=== PATIENT | female | born 1980 | race Caucasian/White ===

== ENCOUNTER 2016-10-24 12:11 | Emergency (ER) | payer BC ==
[2016-10-24 13:11] VITALS: BP 108/70
--- NOTE | 2016-10-24 13:42 | UC ---
Back Pain HPI - HPI Summary HPI Summary: Patient is an otherwise healthy 36yo F arriving to the with low back pain which started yesterday after trying to pull her 3yo daughter out of a cart. She is unable to stand straight, flex the back or twist. She states pain is 10/ 10 and located midline to the lower back and does not radiate. Denies urinary symptoms. Patient has history of low back pain intermittently. She has been diagnosed with DDD and 3 slipped disks. She denies previous back surgery and has not had a recent MRI. She recently had bypass last year and has had this same issue now twice this year. - History of Current Complaint Chief Complaint: UCBackPain Stated Complaint: LOWER BACK PAIN Time Seen by Provider: 10/24/16 12:46 Hx Obtained From: Patient Hx Last Menstrual Period: 10/08/16 ?: No Onset/Duration: Sudden Onset Timing: Constant Severity Initially: Severe Severity Currently: Severe Pain Intensity: 8 Pain Scale Used: 0-10 Numeric Back Pain: Is Discrete @ - low back Character: Throbbing, Spasmodic Aggravating: Movement, Lifting, Bending, Walking Alleviating: Rest, Position Associated Signs And Symptoms: Positive: Negative - Risk Factors AAA Risk Factors: Negative TAD Risk Factors: Negative Cauda Equina Risk Factors: Negative Epidural Abscess Risk Factors: Negative - Allergies/Home Medications Allergies/Adverse Reactions: Allergies Allergy/AdvReac Type Severity Reaction Status Date / Time Budesonide [From Symbicort] Allergy Intermediate Swelling Verified 10/24/16 13: 03 Doxycycline Allergy Intermediate Vomiting Verified 10/24/16 13:03 Formoterol [From Symbicort] Allergy Intermediate Swelling Verified 10/24/16 13: 03 Adhesive Tape Allergy Blisters Verified 10/24/16 13:03 Tramadol [From Ultram] Allergy Difficulty Verified 10/24/16 13:03 Breathing Ibuprofen AdvReac Unknown Verified 10/24/16 13:03 Reaction Details Home Medications: Home Medications Calcium Carbonate-Vitamin D [Calcium 500 + D] 1 tab PO DAILY 10/24/16 [History Confirmed 10/24/16] Gabapentin CAP(*) [Neurontin 100 mg CAP(*)] 100 mg PO BEDTIME 10/24/16 [History Confirmed 10/24/16] Tizanidine HCl [Zanaflex] 4 mg PO BEDTIME PRN 10/24/16 [History Confirmed ] PMH/Surg Hx/FS Hx/Imm Hx Previously Healthy: Yes Cardiovascular History Of: Denies: Cardiac Disorders Respiratory History Of: Reports: Asthma GI/ History Of: Reports: Gall Bladder Disease - naida - Surgical History Surgical History: Yes Surgery Procedure, Year, and Place: tonsils, cholecystectomy; lap band 2009 was removed 05/2015; gastric bypass by Dr. Wolff [facility]. hernia 01/2016. - Family History Known Family History: Positive: Hypertension, Diabetes - Mom is pre-diabetic - Social History Occupation: Employed Full-time Lives: With Family Alcohol Use: Rare Substance Use Type: None, Prescribed Smoking Status (MU): Former Smoker Have You Smoked in the Last Year: No When Did the Patient Quit Smoking/Using Tobacco: 2006 Review of Systems Constitutional: Negative Respiratory: Negative Cardiovascular: Negative Gastrointestinal: Negative Genitourinary: Negative Motor: Decreased ROM Neurovascular: Negative Musculoskeletal: Arthralgia - low back pain Neurological: Negative Psychological: Negative All Other Systems Reviewed And Are Negative: Yes Physical Exam Triage Information Reviewed: Yes Appearance: Well-Appearing, No Pain Distress, Well-Nourished Vital Signs: Initial Vital Signs Temp 97.4 F 10/24/16 13:06 Pulse 80 10/24/16 13:06 Resp 16 10/24/16 13:06 BP 108/70 10/24/16 13:06 Pulse Ox 100 10/24/16 13:06 Vital Signs Reviewed: Yes Eye Exam: Normal Eyes: Positive: Conjunctiva Clear Dental Exam: Normal Neck: Positive: Supple, Nontender, No Lymphadenopathy Respiratory Exam: Normal Respiratory: Positive: Chest non-tender, Lungs clear Cardiovascular Exam: Normal Cardiovascular: Positive: RRR Neurological Exam: Normal Neurological: Positive: Alert Psychological Exam: Normal Psychological: Positive: Normal Response To Family, Age Appropriate Behavior Skin Exam: Normal Back Pain Course/Dx - Course Course Of Treatment: Patient unable to extend at hips. Pain in low back at L4- L5 and does not radiate. No obvious deformity or bulge. Patient given lidocaine patch 5% and pain medications. She states the pain is limited to a few days usually and will get better. She states positioning helps and patient is encouraged to use a heating pad while not using the lidocaine patch. Denies bladder or bowel dysfunction. Xray not warranted as this has happened several times in the past with no obvious injuries shown on xray. - Differential Dx/Diagnosis Differential Diagnosis/HQI/PQRI: Compressive Cord Syndrome, Strain, Sprain Provider Diagnoses: low back strain Discharge - Discharge Plan Condition: Stable Disposition: HOME Prescriptions: HYDROcodone/ACETAMIN 5-325 MG* [[place] 5-325 TAB*] 1 tab PO Q4H PRN #18 tab MDD 6 PRN Reason: Pain Lidocaine PATCH 5%* [Lidoderm 5% Patch*] 1 patch TRANSDERM DAILY #7 patch Patient Education Materials: Low Back Strain (ED), Lower Back Exercises (ED) Referrals: Carol Figueroa MD [Primary Care Provider] - Additional Instructions: Dx. Muscle Strain Lidocaine patches 5% apply for 12 hours at a time. Hydrocodone every 4 hours as needed for pain Ibuprofen 600mg three times daily with meals for discomfort. Return to ED if symptoms worsen or fail to improve, notice worsening swelling, warmth or redness around the joint, develop fever, or pain is uncontrolled with OTC medications. Moist heat to the area for comfort. Warm showers or baths may improve symptoms. It is important to remain mobile as tolerated to prevent stiffening of the joints and delay healing. Follow up with your PCP. If symptoms remain for > 6 weeks, please seek special medical attention from an orthopedic physician.
== END 2016-10-24 13:39 | disposition home or self-care (01) ==
LOC: UCCORT 12:11
DX: S39.012A Strain of muscle, fascia and tendon of lower back, initial encounter (principal); X50.0XXA Overexertion from strenuous movement or load, initial encounter; Y93.89 Activity, other specified; Y92.9 Unspecified place or not applicable; J45.909 Unspecified asthma, uncomplicated; Z90.49 Acquired absence of other specified parts of digestive tract; Z98.84 Bariatric surgery status; Z88.6 Allergy status to analgesic agent; Z88.1 Allergy status to other antibiotic agents; Z88.5 Allergy status to narcotic agent; Z87.891 Personal history of nicotine dependence
CPT/HCPCS: 99212; G0463

== ENCOUNTER 2017-02-20 11:42 | Emergency (ER) | payer BC ==
[2017-02-20 13:45] VITALS: BP 103/61
--- NOTE | 2017-02-20 14:28 | UC ---
Throat Pain/Nasal Jarrett HPI - HPI Summary HPI Summary: Pt presents with c/o nasal congestion, sinus pressure, cough, sore thraot, wheezing, generalized malaise X 1 week. - History of Current Complaint Chief Complaint: UCRespiratory Stated Complaint: SINUS, COUGH Time Seen by Provider: 02/20/17 13:24 Hx Obtained From: Patient Hx Last Menstrual Period: 01/27/17 ?: No Onset/Duration: Gradual Onset, Lasting Weeks - 1week Severity: Moderate Cough: Productive - green Associated Signs & Symptoms: Positive: Wheezing, Sinus Discomfort Related History: Seasonal Allergies - Epiglottits Risk Factors Epiglottis Risk Factors: Negative - Allergies/Home Medications Allergies/Adverse Reactions: Allergies Allergy/AdvReac Type Severity Reaction Status Date / Time Budesonide [From Symbicort] Allergy Intermediate Swelling Verified 02/20/17 13: 45 Doxycycline Allergy Intermediate Vomiting Verified 02/20/17 13:45 Formoterol [From Symbicort] Allergy Intermediate Swelling Verified 02/20/17 13: 45 Adhesive Tape Allergy Blisters Verified 02/20/17 13:45 Tramadol [From Ultram] Allergy Difficulty Verified 02/20/17 13:45 Breathing Ibuprofen AdvReac Unknown Verified 02/20/17 13:45 Reaction Details Home Medications: Home Medications Pseudoephedrine HCL ER TAB* [Sudafed 12 Hour*] 120 mg PO BID 02/20/17 [History Confirmed 02/20/17] PMH/Surg Hx/FS Hx/Imm Hx Previously Healthy: Yes Respiratory History: Asthma Other Respiratory History: seasonal allergies - Surgical History Surgical History: Yes Surgery Procedure, Year, and Place: tonsils, cholecystectomy; lap band 2009 was removed 05/2015; gastric bypass by Dr. Wolff [facility]. hernia 01/2016. - Family History Known Family History: Positive: Hypertension, Diabetes - Mom is pre-diabetic - Social History Occupation: Employed Full-time Lives: With Family Alcohol Use: Rare Substance Use Type: None, Prescribed Smoking Status (MU): Former Smoker Have You Smoked in the Last Year: No When Did the Patient Quit Smoking/Using Tobacco: 2006 Review of Systems Constitutional: Chills, Fatigue Skin: Negative Eyes: Negative ENT: Sore Throat, Nasal Discharge, Sinus Congestion, Sinus Pain/Tenderness Respiratory: Cough Cardiovascular: Negative Gastrointestinal: Negative Genitourinary: Negative Motor: Negative Neurovascular: Negative Musculoskeletal: Negative Neurological: Negative Psychological: Negative All Other Systems Reviewed And Are Negative: Yes Physical Exam Triage Information Reviewed: Yes Appearance: Ill-Appearing Vital Signs: Initial Vital Signs Temp 98.5 F 02/20/17 13:42 Pulse 77 02/20/17 13:42 Resp 18 02/20/17 13:42 BP 103/61 02/20/17 13:42 Pulse Ox 100 02/20/17 13:42 Vital Signs Reviewed: Yes Eye Exam: Normal ENT Exam: Other ENT: Positive: Nasal congestion, Other: - sinus tenderness Dental Exam: Normal Neck exam: Normal Respiratory Exam: Other Respiratory: Positive: Wheezing - scattered throughout all Cardiovascular Exam: Normal Musculoskeletal Exam: Normal Neurological Exam: Normal Psychological Exam: Normal Skin Exam: Normal Throat Pain/Nasal Course/Dx - Differential Dx/Diagnosis Differential Diagnosis/HQI/PQRI: Sinusitis, Other - bronchitits Provider Diagnoses: sinusitis. wheezing/cough Discharge - Discharge Plan Condition: Stable Disposition: HOME Prescriptions: Amoxicillin PO (*) [Amoxicillin 875 MG (*)] 875 mg PO BID #14 tab Montelukast Sodium TAB* [Singulair TAB*] 10 mg PO BEDTIME #30 tab predniSONE TAB* [Deltasone TAB*] 20 mg PO DAILY #4 tab Patient Education Materials: Sinusitis (ED), Wheezing (ED) Referrals: Carol Figueroa MD [Primary Care Provider] - If Needed (Please follow up with your PCP as needed)
== END 2017-02-20 14:43 | disposition home or self-care (01) ==
LOC: UCCORT 11:42
DX: J01.90 Acute sinusitis, unspecified (principal); R06.2 Wheezing; R05 Cough; Z88.1 Allergy status to other antibiotic agents; Z88.8 Allergy status to other drugs, medicaments and biological substances
CPT/HCPCS: 99212; G0463

== ENCOUNTER 2017-10-25 10:20 | Emergency (ER) | payer BC ==
[2017-10-25 11:20] VITALS: BP 112/74
[2017-10-25] MEDS ORDERED: Ketorolac INJ* 30 MG/ML 1 ML VIAL IM ONE (11:45)
[2017-10-25] MEDS ORDERED: Metoclopramide TAB* 10 MG PO ONE (11:45)
[2017-10-25] MEDS ORDERED: SUMAtriptan SQ* 6 MG/0.5 ML VIAL SUBCUT ONE (11:46)
[2017-10-25] MEDS ORDERED: Ondansetron TAB* 4 MG PO ONE (11:46)
--- NOTE | 2017-10-25 11:53 | UC ---
Headache HPI - HPI Summary HPI Summary: She was watching TV when she got a headache which was about 7/10 in pain. It got worse until bedtime to a 10/10. THis morning it is a little better and is a 6/10. There is photophobia and phonophibia. No vomiting. SHe has hx of aura without headache. No focal neuro deficits. NO fever. SHe has neck pain and post headache as well. She is not on blood thinners. - History Of Current Complaint Chief Complaint: UCHeadache Stated Complaint: NGUYEN Time Seen by Provider: 10/25/17 11:35 Hx Obtained From: Patient Hx Last Menstrual Period: 10/18/17 Onset/Duration: Still Present Onset Of Symptoms: Still Present Initially Headache Was: Moderate Currently Pain Is: Current Pain Scale(0-10)= - 6/10 Pain Intensity: 7 Timing: Constant, Hours Character: Dull, Throbbing, Pressure Location of Headache: Temporal, Parietal Aggravating Factor(s): Bright Lights Allevating Factor(s): Position Change Associated Signs And Symptoms: Positive: Dizziness, Neck Pain, Neck Stiffness, Visual Changes. Negative: Nausea, Vomiting, Sinus Pressure, Fever, Decreased LOC - Allergies/Home Medications Allergies/Adverse Reactions: Allergies Allergy/AdvReac Type Severity Reaction Status Date / Time MS Budesonide Allergy Intermediate Swelling Verified 02/20/17 13:45 [From Symbicort] MS Doxycycline [Doxycycline] Allergy Intermediate Vomiting Verified 02/20/17 13: 45 MS Formoterol Allergy Intermediate Swelling Verified 02/20/17 13:45 [From Symbicort] Adhesive Tape Allergy Blisters Verified 02/20/17 13:45 MS Tramadol [From Ultram] Allergy Difficulty Verified 02/20/17 13:45 Breathing MS Ibuprofen [Ibuprofen] AdvReac Unknown Verified 02/20/17 13:45 Reaction Details PMH/Surg Hx/FS Hx/Imm Hx Previously Healthy: No - on fluoxetine. Prior headaches and aura. At times aura does not proceed hea - Surgical History Surgical History: Yes Surgery Procedure, Year, and Place: tonsils, cholecystectomy; lap band 2009 was removed 05/2015; gastric bypass by Dr. Wolff [facility]. hernia 01/2016. - Family History Known Family History: Positive: Hypertension, Diabetes - Mom is pre-diabetic - Social History Alcohol Use: Rare Substance Use Type: None Smoking Status (MU): Current Some Day Smoker Have You Smoked in the Last Year: No When Did the Patient Quit Smoking/Using Tobacco: 2006-had cigarette today Review of Systems Eyes: Blurred Vision, Photophobia Neurological: Headache All Other Systems Reviewed And Are Negative: Yes Physical Exam Triage Information Reviewed: Yes Appearance: Well-Appearing, Well-Nourished - Not in extremis but appears to have a headache. She is sitting up in chair and transfers to exam table easily. , Obese Vital Signs: Initial Vital Signs Temp 97.9 F 10/25/17 11:11 Pulse 95 10/25/17 11:11 Resp 20 10/25/17 11:11 BP 112/74 10/25/17 11:11 Pulse Ox 99 10/25/17 11:11 Vital Signs Reviewed: Yes Eyes: Positive: Conjunctiva Clear, Other: - Rashaun fundoscopic intact without papilledema.. Negative: Conjunctiva Inflamed ENT: Positive: Pharynx normal, Pharyngeal erythema, TMs normal, Uvula midline. Negative: Nasal congestion, Nasal drainage, Tonsillar swelling, Tonsillar exudate, Trismus, Sinus tenderness Neck: Positive: Supple, Nontender, No Lymphadenopathy. Negative: Nuchal Rigidity, Tenderness @, Enlarged Nodes @ - I lay her onthe examtable. It is easy to lift head off the bed, there is no muscular resistance. neck muscles are soft. Respiratory: Positive: Normal breath sounds, No respiratory distress, No accessory muscle use. Negative: Respiratory distress, Decreased breath sounds, Accessory muscle use, Crackles, Rhonchi, Stridor, Wheezing Cardiovascular: Positive: No Murmur, Pulses Normal, Brisk Capillary Refill Abdomen Description: Positive: No Organomegaly, Soft. Negative: Distended, Guarding Musculoskeletal: Positive: Strength Intact, ROM Intact, No Edema Neurological Exam: Normal Neurological: Positive: Alert, Muscle Tone Normal, Other: - Toe raise and heel raise intact. Rhomberg neg. Finger to nose and heel to brown well coordinated. CN III-XII intact.. Negative: Fatigued, Lethargic, Unresponsive, Abnormal Muscle Tone Psychological: Positive: Age Appropriate Behavior Skin: Negative: rashes Headache Course/Dx - Course Course Of Treatment: We have considered encephalitis, meningitis, sub arachnoid hemorrhage, brain bleed, CVA. There is no clinical evidence of this and she has no risk factors. Presentation is quite atypical for SAH. This is most c/w migraine. She feels much better after meds and has a headache of about 2/10 now. - Differential Dx/Diagnosis Differential Diagnosis/HQI/PQRI: CO2 Poisoning, CVA, TIA, Epidural Hematoma, Subdural Hematoma, Meningitis, Migraine, Sinus Headache, Subarachnoid Hemorrhage , Temporal Arteritis, Tension Headache, Viral Syndrome Provider Diagnoses: migraine Discharge - Sign-Out/Discharge Documenting (check all that apply): Discharge - Discharge Plan Condition: Good Disposition: HOME Patient Education Materials: Migraine Headache (ED) Referrals: Carol Figueroa MD [Primary Care Provider] - - Billing Disposition and Condition Condition: GOOD Disposition: HOME
[2017-10-25] MEDS ORDERED: Ondansetron ODT TAB* 4 MG PO ONE (12:10)
== END 2017-10-25 12:33 | disposition home or self-care (01) ==
LOC: UCCORT 10:20
DX: G43.909 Migraine, unspecified, not intractable, without status migrainosus (principal); Z88.6 Allergy status to analgesic agent; Z88.1 Allergy status to other antibiotic agents; Z88.8 Allergy status to other drugs, medicaments and biological substances; F17.210 Nicotine dependence, cigarettes, uncomplicated
CPT/HCPCS: 96372; 99212; A9270-GY; G0463; J1885; J3030

== ENCOUNTER 2018-07-11 11:03 | Emergency (ER) | payer BC ==
[2018-07-11 14:05] VITALS: BP 116/75
--- NOTE | 2018-07-11 14:19 | UC ---
Throat Pain/Nasal Jarrett HPI - HPI Summary HPI Summary: 38 y/o female with h/o asthma, no recent illnesses or ABX use presents with ~ 1 week h/o sinus congestion, headache/ sinus pain, cough, congestion in throat. No SOB currently, has rescue inhaler but low, does help with symtpoms. unknown fever, + chills/ body aches. - History of Current Complaint Stated Complaint: COUGH,CONGESTION Time Seen by Provider: 07/11/18 13:57 Hx Obtained From: Patient Hx Last Menstrual Period: ~06/10/18 ?: No Onset/Duration: Sudden Onset, Lasting Days Severity: Mild Pain Intensity: 0 Pain Scale Used: 0-10 Numeric Cough: Nonproductive Associated Signs & Symptoms: Positive: Sinus Discomfort, Nasal Discharge, Fever - chills Related History: Seasonal Allergies, Prior ENT Surgery - groiter - Allergies/Home Medications Allergies/Adverse Reactions: Allergies Allergy/AdvReac Type Severity Reaction Status Date / Time Adhesive Tape Allergy Blisters Verified 07/11/18 13:58 budesonide [From Symbicort] Allergy Swelling Verified 07/11/18 13:58 doxycycline Allergy Vomiting Verified 07/11/18 13:58 formoterol [From Symbicort] Allergy Swelling Verified 07/11/18 13:58 NSAIDS (Non-Steroidal Allergy See Comment Verified 07/11/18 13:58 Anti-Inflamma tramadol Allergy Difficulty Verified 07/11/18 13:58 Breathing Home Medications: Home Medications Gabapentin CAP(*) [Neurontin 300 CAP(*)] 300 mg PO BID 07/11/18 [History Confirmed 07/11/18] guaiFENesin [Guaifenesin] 400 mg PO Q4H PRN 07/11/18 [History Confirmed 07/11/18 ] PMH/Surg Hx/FS Hx/Imm Hx Previously Healthy: Yes - Surgical History Surgical History: Yes Surgery Procedure, Year, and Place: tonsils, cholecystectomy; lap band 2009 was removed 05/2015; gastric bypass by Dr. Wolff [facility]. hernia 01/2016. - Family History Known Family History: Positive: Hypertension, Diabetes - Mom is pre-diabetic - Social History Alcohol Use: Rare Substance Use Type: None Smoking Status (MU): Former Smoker Have You Smoked in the Last Year: No When Did the Patient Quit Smoking/Using Tobacco: ~2007 Review of Systems All Other Systems Reviewed And Are Negative: Yes Constitutional: Positive: Chills, Fatigue ENT: Positive: Sore Throat, Nasal Discharge, Sinus Congestion, Sinus Pain/ Tenderness Respiratory: Positive: Cough Gastrointestinal: Positive: Diarrhea - 2 weeks ago Neurological: Positive: Headache Is Patient Immunocompromised?: No Physical Exam Triage Information Reviewed: Yes Appearance: No Pain Distress, Well-Nourished, Ill-Appearing - mild Vital Signs: Initial Vital Signs Temp 98.9 F 07/11/18 13:53 Pulse 90 07/11/18 13:53 Resp 16 07/11/18 13:53 BP 116/75 07/11/18 13:53 Pulse Ox 99 07/11/18 13:53 Vital Signs Reviewed: Yes Eyes: Positive: Conjunctiva Clear ENT: Positive: Pharynx normal - minimal erythema, Nasal congestion - frontal, max b/l, TMs normal, Sinus tenderness - b/l, Uvula midline. Negative: Tonsillar swelling, Tonsillar exudate, Muffled voice, Hoarse voice, Dental tenderness Neck: Positive: Supple, Nontender, No Lymphadenopathy, Other: - enlarged thyroid nodule Respiratory: Positive: Chest non-tender, Lungs clear, Normal breath sounds, No respiratory distress, No accessory muscle use. Negative: Respiratory distress, Crackles, Rhonchi, Stridor, Wheezing Cardiovascular: Positive: RRR, No Murmur Psychological Exam: Normal Skin Exam: Normal Throat Pain/Nasal Course/Dx - Course Course Of Treatment: sinusitis, abx given, patient to undergo surgery in 12 days. inhaler, nebs given - Differential Dx/Diagnosis Differential Diagnosis/HQI/PQRI: Laryngitis, Pharyngitis, Sinusitis Provider Diagnosis: Sinusitis Discharge - Sign-Out/Discharge Documenting (check all that apply): Patient Departure All imaging exams completed and their final reports reviewed: No Studies - Discharge Plan Condition: Good Disposition: HOME Prescriptions: Albuterol 2.5MG/3ML (0.083%)* [Ventolin 2.5 MG/3 ML NEB.TAB*] 2.5 mg INH Q4H PRN #60 neb.tab PRN Reason: Shortness Of Breath Albuterol HFA INHALER* [Ventolin HFA Inhaler*] 1 - 2 puff INH Q4H PRN #1 mdi PRN Reason: shortness of breath Azithromyxin HANS (NF) [Z-Hans (Zithromax) 250 mg tabs #6] 2 tab PO .TODAY, THEN 1 DAILY #6 tab Patient Education Materials: Sinusitis (ED) Referrals: Carol Figueroa MD [Primary Care Provider] - Additional Instructions: - Increase fluid intake - Nebulizer as needed for shortness of breath, cough - REscue inhaler for cough - antibiotics for sinusitis as directed - Billing Disposition and Condition Condition: GOOD Disposition: Home - Attestation Statements Provider Attestation: I was available for consult. This patient was seen by the [facility]. The patient was not presented to, seen by, or examined by me. -Mignon
== END 2018-07-11 14:24 | disposition home or self-care (01) ==
LOC: UCCORT 11:03
DX: J32.9 Chronic sinusitis, unspecified (principal); Z88.1 Allergy status to other antibiotic agents; Z88.8 Allergy status to other drugs, medicaments and biological substances; Z88.6 Allergy status to analgesic agent; Z88.5 Allergy status to narcotic agent; Z87.891 Personal history of nicotine dependence
CPT/HCPCS: 99212; G0463

== ENCOUNTER 2019-01-08 15:56 | Emergency (ER) | payer BC ==
--- OUTSIDE RECORDS SUMMARY | 2019-01-08 17:17 | XMS REPORT | Continuity of Care Document ---
:1980 External Reference #:[id number] Author Name Debbie Fajardo Care Team Providers Name Role Phone Alaina Zeng FNP Care Team Information Walking Dragline Operator Unavailable Alaina Zeng FNP Primary Care Physician Unavailable Payers Date Identification Numbers Payment Provider Subscriber Policy Number: [id number] BS [employer] Augustus Garcia PayID: [id number] [address] [address] [place] [address] Family History Date Family Member(s) Observation Comments Father Heart Disease Father 63 Father spinal stenosis Mother Breast Cancer Mother 63 First Brother 25 First Brother No Current Problems Social History Type Date Description Comments Sex Unknown Occupation [employer] Tobacco Use Start: Unknown End: Used To Smoke Cigarettes But Unknown Quit. ETOH Use Rare Use Of Alcohol Recreational Drug Use Used Recreational Drugs In The Past Allergies, Adverse Reactions, Alerts Active Allergies Reaction Severity Comments Date Doxycycline VOMITING 10/24/2014 Symbicort (US) FACIAL SWELLING 10/24/2014 Medications Active Medications SIG Qnty Indications Ordering Provider Date Zyrtec Allergy 1 by mouth every Unknown 10mg day Tablets Prozac 1 by mouth every Unknown 20mg Capsules day hs Prilosec OTC 2 by mouth every Unknown 20mg Tablets day x 1 mo. Multivitamins 1 a day Unknown Capsules Calcium PO qid Unknown 500mg Tablets Vitamin B12 PO Qday Unknown Tablets ER Gabapentin PO bid Unknown 300mg Capsules Albuterol Sulfate nebulizer as Unknown needed Nebulizer Proventil HFA prn Unknown 108(90Base) mcg/Act Aerosol History Medications Percocet 1-2 by mouth four 20tabs Zaid Floresoj, M.D. 07/23/2018 - 5-325mg times a day as 07/30/2018 Tablets needed for pain Prevacid 1 tab by mouth Unknown - Capsules daily 05/28/2018 Patrice Unknown - Capsules 07/17/2018 Prednisone Unknown - Tablets 08/16/2018 Vital Signs Date Vital Result Comment 12/24/2018 2:08pm Weight 217.00 lb Height 67 inches 5'7" BMI (Body Mass Index) 34.0 kg/m2 BP Systolic 95 mmHg BP Diastolic 58 mmHg Heart Rate 88 /min O2 % BldC Oximetry 98 % Body Temperature 98.1 F Pain Level 0 09/21/2018 10:00am Weight 216.00 lb Height 67 inches 5'7" BMI (Body Mass Index) 33.8 kg/m2 BP Systolic 119 mmHg BP Diastolic 80 mmHg Heart Rate 88 /min O2 % BldC Oximetry 99 % Body Temperature 98.7 F Pain Level 0 08/31/2018 11:14am Weight 215.00 lb Height 67 inches 5'7" BMI (Body Mass Index) 33.7 kg/m2 BP Systolic 107 mmHg BP Diastolic 68 mmHg Heart Rate 74 /min O2 % BldC Oximetry 98 % Body Temperature 98.1 F Pain Level 0 08/16/2018 1:36pm Weight 212.00 lb Height 67 inches 5'7" BMI (Body Mass Index) 33.2 kg/m2 BP Systolic 107 mmHg BP Diastolic 74 mmHg Heart Rate 100 /min O2 % BldC Oximetry 97 % Body Temperature 96.9 F Pain Level 0 07/30/2018 10:15am Weight 206.00 lb Height 67 inches 5'7" BMI (Body Mass Index) 32.3 kg/m2 BP Systolic 119 mmHg BP Diastolic 83 mmHg Heart Rate 75 /min O2 % BldC Oximetry 98 % Body Temperature 97.0 F Pain Level 6 05/28/2018 1:21pm Weight 218.00 lb Height 67 inches 5'7" BMI (Body Mass Index) 34.1 kg/m2 BP Systolic 103 mmHg BP Diastolic 70 mmHg Heart Rate 79 /min O2 % BldC Oximetry 98 % Body Temperature 97.4 F Pain Level 0 10/24/2014 1:13pm Weight 290.00 lb Height 67 inches 5'7" BMI (Body Mass Index) 45.4 kg/m2 BP Systolic 116 mmHg BP Diastolic 72 mmHg Heart Rate 106 /min O2 % BldC Oximetry 98 % Body Temperature 98.5 F Results Test Date Facility Test Result H/L Range Note TSH+Free T4 12/24/2018 [facility] TSH (Thyroid <pending> [address] Stim [place]orm) [place] [address] [phone] Free T4 (Free Thyroxine) <pending> TSH+Free T4 09/21/2018 [facility] TSH (Thyroid 2.46 mcIU/mL N 0.34-5.[address] [place]) [place] [address] [phone] Free T4 (Free Thyroxine) 0.66 ng/dL N 0.61-1.12 2 Laboratory test 07/23/2018 [facility] Surgical SEE RESULT [address] [place] [address] [phone] Laboratory test 05/29/2018 [facility] Cytology SEE RESULT 4 , [address] Non[employer] [place] [address] [phone] Laboratory test 10/24/2014 [facility] Oral Mucosa See Note [address] [place] [address] [phone] [id number] 3 SEE RESULT BELOW Name: APARNA GARCIA : [address]: Greyson Flores MD Acct: [id number] Unit: [id number] AGE: 38 Location: [facility] Re07/23/18 SEX: F Status: REG REF SPEC: [id number] TAMARA: 07/23/18 [facility] DR: Greyson Flores MD REQ: [id number] RECD: 07/23/18 STATUS: SOUT _ ORDERED: LEVEL 5 COMMENTS: [id number] FINAL DIAGNOSIS Thyroid, left, lobectomy: -- Nodular follicular hyperplasia with predominant macrofollicular pattern with involutional changes and dystrophic calcifications. -- No evidence of neoplasia identified. CLINICAL HISTORY No history given GROSS DESCRIPTION The specimen is received in formalin labeled, Left Thyroid Gland, and consists of a 52 g, 9.5 x 5.7 by up to 3.2 cm aggregate of brown-ureña to huddleston irregular rubbery shaggy soft tissue fragments consistent with a markedly disrupted thyroid gland. The largest fragments measure 4.0 x 3.1 x 2.6 cm and 5.5 x 3.5 x 3.5 cm. The largest fragment is partially surfaced by a smooth to shaggy mottled huddleston-white intact capsule. The cut surface is variegated huddleston-white and colloidal. The remaining cut surface is huddleston-brown and colloidal. The intact capsule is inked, the specimen is serially sectioned and chemical sales representative sections are submitted in cassettes A through L to include largest fragment in cassettes A through H. Signed by and Reported on: James Tong MD 1526 END OF REPORT DEPARTMENT OF PATHOLOGY, [address] [place] [address] James Tong M.D. Director [facility] # [id number] 4 [id number] 5 SEE RESULT BELOW Name: APARNA GARCIA : [address]: Greyson Flores MD Acct: [id number] Unit: [id number] AGE: 38 Location: [facility] Re05/29/18 SEX: F Status: REG REF SPEC: [id number] TAMARA: 05/29/18-1800 [facility] DR: Greyson Flores MD REQ: [id number] RECD: 05/30/18-0 STATUS: SOUT _ ORDERED: FNA [facility] COMMENTS: [id number] FINAL DIAGNOSIS Thyroid, left, fine needle aspiration: Benign thyroid nodule, involutional type ([place] class II). The specimen demonstrates abundant watery proteinaceous fluid, an abundant amount of benign appearing follicular epithelium arranged in uniform sheets, medium sized follicles and only occasional small groups. Abundant pigmented and non-pigmented macrophages are seen in the background. No features of papillary carcinoma are seen. In this clinical setting the risk of malignancy is less than 3%. Clinical management of this thyroid nodule should be based on clinical and radiographic features as well as the above findings. THYROID LEFT - LEFT THYROID FINE NEEDLE ASP[IRATION CLINICAL HISTORY Left thyroid nodule. GROSS DESCRIPTION 1 Alcohol fixed slide(s) received from clinician, 5 Air dried slide(s) and Needle rinse in CytoLyt solution for thin layer non-channel machine operator test.(clear) Signed by and Reported on: James Tong MD 1204 END OF REPORT DEPARTMENT OF PATHOLOGY, [address] [place] [address] James Tong M.D. Director [facility] # [id number] 6 OPERATION/PROCEDURE Biopsy DIAGNOSIS: "LESION, INSIDE LEFT SIDE OF CHEEK, BIOPSY": SQUAMOUS MUCOSA WITH REACTIVE CHANGES. Bowen " GROSS Received in formalin labeled, "LESION, INSIDE LEFT SIDE OF CHEEK" is a 0.5 x 0.2 x 0.2 cm. huddleston, rubbery tissue. The deep edge is inked, the specimen is bisected and submitted in toto in one block. Bowen MICROSCOPIC Sections show a fragment of reactive parakeratotic and hyperplastic benign squamous epithelium. The rete ridges are hyperplastic and elongated. Some keratinocytes have vague cytoplasmic vacuoles that raise the concern of HPV infection. In situ hybridization studies were performed at [facility] and interpreted at [facility] with proper controls. No definitive evidence of high or low risk HPV infection is identified. PRE OPERATIVE DIAGNOSIS Left side of cheek lesion REVIEW CODE CODE: I Signed Electronically signed JOSEPH KIDD MD 10/29/14 1332 Procedures Date Code Description Status 07/23/2018 81999 Tot.Thyroid Lobect./Unil./Isthmus Completed 07/23/2018 47734 Tot.Thyroid Lobect./Unil./Isthmus Completed 07/23/2018 59913 Anesthesia, Neck Organ Surgery Not Otherwise Spec 1Yr Or Completed Older 05/29/2018 17688 Ultrasonic Guide Needle Biopsy Completed 05/29/2018 33242 Fna W/Image Completed 05/28/2018 52877 Ultrasound Head/Neck Completed 05/28/2018 70019 Fiberoptic Laryngoscopy,Diag. Completed 10/24/2014 68727 Exc Of Lesion Of Mucosa/Submucosa,Vestibule Of Completed Mouth:W/Simple Rep Encounters Type Date Location Provider Dx Diagnosis Office Visit 05/28/2018 Main Office Greyson Flores M.D. 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
[2019-01-08 17:21] VITALS: BP 120/72
--- NOTE | 2019-01-08 17:46 | UC ---
Throat Pain/Nasal Jarrett HPI - HPI Summary HPI Summary: 38 y/o female presents to the urgent care c/o sore throat, NGUYEN, sinus congestion , pressure, and yellowish nasal discharge for the past week. Pt reports symptoms worsen 2 days ago w/ Rt ear pain and dry cough. She noticed some blisters on the back of her throat today. Pt states pain is 4/10. She has taken Sudafed, Tylenol PO to alleviate symptoms. Pt denies fever, but had chills last night. Pt denies SOB, dizziness, chest pain,abdominal pain, N/V/d. - History of Current Complaint Chief Complaint: UCGeneralIllness Stated Complaint: ST,COUGH,CONGESTION, RT EAR COMPLAINT Time Seen by Provider: 01/08/19 17:35 Hx Obtained From: Patient Hx Last Menstrual Period: 12/28/18 Onset/Duration: Gradual Onset, Lasting Weeks - 1 week, Still Present, Worse Since - 2 days Severity: Moderate Pain Intensity: 4 - Rt ear pain Pain Scale Used: 0-10 Numeric Cough: Nonproductive Associated Signs & Symptoms: Positive: Sinus Discomfort, Nasal Discharge - yellowish. Negative: Hoarseness, Fever Related History: Seasonal Allergies - Epiglottits Risk Factors Epiglottis Risk Factors: Negative - Allergies/Home Medications Allergies/Adverse Reactions: Allergies Allergy/AdvReac Type Severity Reaction Status Date / Time Adhesive Tape Allergy Blisters Verified 01/08/19 17:22 budesonide [From Symbicort] Allergy Swelling Verified 01/08/19 17:22 doxycycline Allergy Vomiting Verified 01/08/19 17:22 formoterol [From Symbicort] Allergy Swelling Verified 01/08/19 17:22 NSAIDS (Non-Steroidal Allergy See Comment Verified 01/08/19 17:22 Anti-Inflamma tramadol Allergy Difficulty Verified 01/08/19 17:22 Breathing PMH/Surg Hx/FS Hx/Imm Hx Previously Healthy: Yes Respiratory History: Asthma - Surgical History Surgical History: Yes Surgery Procedure, Year, and Place: tonsils, cholecystectomy; lap band 2009 was removed 05/2015; gastric bypass by Dr. Wolff [facility]. hernia 01/2016. . thyroidectomy 07/2018 - Family History Known Family History: Positive: Hypertension, Diabetes - Mom is pre-diabetic - Social History Occupation: Employed Full-time Lives: With Family Alcohol Use: Rare Substance Use Type: None Smoking Status (MU): Former Smoker Have You Smoked in the Last Year: No When Did the Patient Quit Smoking/Using Tobacco: ~2007 Review of Systems All Other Systems Reviewed And Are Negative: Yes Constitutional: Positive: Negative Skin: Positive: Negative Eyes: Positive: Negative ENT: Positive: Sore Throat, Ear Ache - RT ear pain, Nasal Discharge - yellowish , Sinus Congestion, Sinus Pain/Tenderness, Other - PND Respiratory: Positive: Cough - dry Cardiovascular: Positive: Negative Gastrointestinal: Positive: Negative Genitourinary: Positive: Negative Motor: Positive: Negative Neurovascular: Positive: Negative Musculoskeletal: Positive: Negative Neurological: Positive: Negative Psychological: Positive: Negative Is Patient Immunocompromised?: No Physical Exam - Summary Physical Exam Summary: Vitals: reviewed General: Well developed, well-nourished female patient with NAD. Head and face: Normocephalic and atraumatic, Positive tenderness over the frontal and maxillary sinuses.. Eyes: PERRLA, EOMI x 2. Normal conjunctiva. No eye discharge. ENT: RT external ear canal w/ erythema dn yellowish draiange, RT TM WNL, LF exteranl ear canal clear, LF TM WNL, Nose: edematous and erythematous nasal mucosa with with yellowish discharge and erythematous mucosa. Pharynx with erythema, no exudate. Neck: Supple, no JVD, no carotid bruits and no lymphadenopathy. Lungs: clear, no rales, no rhonchi, no wheezes. CVS: RRR, S1 and S2 present no murmurs or gallops appreciated. Abdomen: soft nontender with positive bowel sounds. Extremities: no edema noted. Neuro: WNL. Skin: warm and dry Triage Information Reviewed: Yes Vital Signs: Initial Vital Signs Temp 98.3 F 01/08/19 17:18 Pulse 93 01/08/19 17:18 Resp 20 01/08/19 17:18 BP 120/72 01/08/19 17:18 Pulse Ox 100 01/08/19 17:18 Throat Pain/Nasal Course/Dx - Course Course Of Treatment: 38 y/o female presents to the urgent care c/o sore throat, NGUYEN, sinus congestion , pressure, and yellowish nasal discharge for the past week. Pt reports symptoms worsen 2 days ago w/ Rt ear pain and dry cough. She noticed some blisters on the back of her throat today. Pt states pain is 4/10. She has taken Sudafed, Tylenol PO to alleviate symptoms. Pt denies fever, but had chills last night. Pt denies SOB, dizziness, chest pain,abdominal pain, N/V/d. Hx obtained. Pt w/ acute bacterial sinusitis and Rt otitis externa on examination. Pt Rx Amoxicillin PO and ofloxacin otic drops to alleviate symptoms. Advised to use the flonase nasal spary and saline drops she has at home to clear sinuses. Discharge instructions explained to Pt. Advised to Return to the clinic or PCP if symptoms do not improve.Pt understood and agreed with plan of care. - Differential Dx/Diagnosis Differential Diagnosis/HQI/PQRI: Laryngitis, Mononucleosis, Otitis Media, Pharyngitis, Sinusitis, Tonsillitis, URI Provider Diagnosis: Right otitis externa, Sinusitis, acute Discharge - Sign-Out/Discharge Documenting (check all that apply): Patient Departure - D/c home All imaging exams completed and their final reports reviewed: No Studies - Discharge Plan Condition: Stable Disposition: HOME Prescriptions: Amoxicillin PO (*) [Amoxicillin 875 MG (*)] 875 mg PO BID #20 tab Ofloxacin 0.3% (Ear Drop)* [Floxin 0.3% OTIC.TAB (Ear Drop)] 5 drop RIGHT EAR BID #1 btl Patient Education Materials: Sinusitis (ED), Otitis Externa (ED) Referrals: Aneta Zeng, DRY ROASTER [Primary Care Provider] - 3 Days Additional Instructions: 1- Please increase fluid intake and rest. take full course of antibiotics if sinusitis worsens to avoid resistance. Take yogurts w/ probiotics or Culturelle to protect your GI system 2-Use Flonase nasal spray you have at home as directed to help drain fluid. Also buy saline drops to clear sinuses 3-Apply Ofloxacin otic drops as directed to alleviates RT otitis externa 4- Use Albuterol inhaler to alleviate cough or bronchospasm 4-Please f/u w/ your PCP in 3 days if symptoms do not improve for further management and treatment - Billing Disposition and Condition Condition: STABLE Disposition: Home
[2019-01-08] MEDS ORDERED: Albuterol 2.5 MG/3 ML NEB.SOL* (0.083%) INH ONE (17:55)
== END 2019-01-08 18:33 | disposition home or self-care (01) ==
LOC: UCCORT 15:56
DX: H60.91 Unspecified otitis externa, right ear (principal); J01.90 Acute sinusitis, unspecified; Z88.1 Allergy status to other antibiotic agents; Z87.891 Personal history of nicotine dependence
CPT/HCPCS: 87651; 99212; G0463

== ENCOUNTER 2019-02-17 09:01 | Emergency (ER) | payer BC ==
--- OUTSIDE RECORDS SUMMARY | 2019-02-17 09:09 | XMS REPORT | Continuity of Care Document ---
:1980 External Reference #:[id number] Author Name Paula Metcalf PA Address [phone] [place] [address] Care Team Providers Name Role Phone Alaina Zeng NP Care Team Information Supply Teacher Unavailable Alaina Zeng NP Primary Care Physician Unavailable Payers Date Identification Numbers Payment Provider Subscriber Policy Number: [id number] Ahmet Garcia Group Name: [facility] [address] [address] PayID: [id number] [place] [address] Problems Active Problems Provider Date Single major depressive episode Stephanie Murillo M.D. Onset: 05/04/2011 Intrinsic asthma Aimee Guajardo MD Onset: 12/15/2014 History of bypass of stomach Alaina Zeng FNP Onset: 07/27/2018 Neck pain Alaina Zeng FNP Onset: 12/05/2018 Resolved Problems Exacerbation of intermittent asthma Alaina Zeng FNP Onset: 2016 Resolved: 12/05/2018 Family History Date Family Member(s) Observation Comments Father Heart Disease Father Stroke Mother Breast Cancer Mother Hypertension Social History Type Date Description Comments Sex Unknown Lives With Lives With Daughter Occupation coach professional athletes ETOH Use Denies alcohol use Tobacco Use Start: Unknown End: Unknown Patient is a former smoker Tobacco Use Start: Unknown Quit 2006 Tobacco Use Start: Unknown works with smokers Smoking Status Reviewed: 01/21/19 works with smokers Allergies, Adverse Reactions, Alerts Active Allergies Reaction Severity Comments Date Ultram 05/04/2011 Doxycycline Vomiting 10/24/2014 Symbicort (US) Facial Swelling 10/24/2014 Medications Active Medications SIG Qnty Indications Ordering Provider Date Ofloxacin 2 drops both eyes 5ml H10.233 Aimee Guajardo, 01/21/2019 (Ophthalmic) twice a day for 7 MD 0.3% days Solution Albuterol Sulfate nebulized every 4 75ml J45.21 Karri, 02/24/2017 hours as needed Alaina (2.5mg/3ML) 0.083% VIRIDIANA Nebulizer Fluoxetine HCL Take 1 Capsule By 90caps F41.1 Aimee Guajardo, 11/13/2015 20mg Mouth Every Day MD Capsules Omeprazole 1 by mouth every 90caps Karri, 40mg day Robert Foley DR Bariatric Multiv 3 In Am,3 AT Night Murillo, Xiomy Brown Zanaflex 1 cap by mouth Unknown 4mg Capsules three times a day as needed neck spasm Gabapentin 1 by mouth twice a G25.81 Unknown 300mg day *from Sos for Capsules neck pain Fluticasone 1 spray each nares Unknown Propionate Nasal once daily. [place] 50mcg/Act Suspension History Medications Prednisone 1 by mouth 10tabs M54.31 Karri, 07/27/2018 - 20mg twice a day x 5 VIRIDIANA Foley 08/01/2018 Tablets days Oxycodone-Acetaminop 1-2 tablets 40tabs M54.31 Karri, 07/27/2018 - hen every 4-6 hours VIRIDIANA Foley 01/21/2019 5-325mg Tablets as needed for moderate to severe pain mdd#8 Nystatin apply tid for 7 60gm B37.2 Clary Scherer, 11/06/2017 - days PNP-VIRIDIANA HAYWARD, Ibclc 07/27/2018 [id number] Powder Prednisone take 5 tabs 36tabs J45.21 Carol Figueroa M.D. 07/05/2017 - 10mg daily x 3 days, 10/31/2017 Tablets 4 tabs x 2 days, 3 tabs x 2 days, 2 tabs x 2 days, 1 tab x 3 days, total 12 days Hydrocodone 1 tsp by mouth 493.12 Carol Figueroa M.D. 06/28/2017 - Polistirex/Chlorphen every 12 hrs as 06/28/2017 iramine Polistirex needed for persistent 10-8mg/5ML Suer cough; has taken before without allergic issues Reference #: [id number] Hydrocodone 1 teaspoon by 115ml J20.9 Carol Figueroa M.D. 06/28/2017 - Polistirex/Chlorphen mouth every 12 07/08/2017 iramine Polistirex hours as needed for persistent 10-8mg/5ML [place] cough; has taken before Reference #: [id number] Prednisone 1 by mouth 10tabs J45.21 Karri, 06/28/2017 - 20mg every day x 5 JenniferNATASHA stephensonP 07/03/2017 Tablets days *has used previously without reaction Cefdinir one by mouth 20caps J01.90 Karri, 06/28/2017 - 300mg q12 hours x 10 JenniferNATASHA stephensonP 07/08/2017 Capsules days Prednisone take 5 tabs 36tabs J45.21 Carol Figueroa M.D. 02/24/2017 - 10mg daily x 3 days, 06/28/2017 Tablets 4 tabs x 2 days, 3 tabs x 2 days, 2 tabs x 2 days, 1 tab x 3 days, total 12 days Tussionex 1 tsp by mouth 115ml 493.12 Carol Figueroa M.D. 02/24/2017 - Pennkinetic Extended every 12 hrs as 06/28/2017 Release needed for 10-8mg/5ML persistent Suer cough; has taken before without allergic issues Reference #: [id number] Fluconazole take 1 tablet 1tabs Carol Figueroa M.D. 09/05/2016 - 150mg by mouth 06/28/2017 Tablets Gabapentin take 1 capsule 90caps G25.81 Carol Figueroa M.D. 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 11/12/2014 Tablets days Prednisone 2 a day for 3 6tabs 493.92 Stephanie Murillo, 11/04/2014 - 20mg days then 1 M.D. 06/30/2015 Tablets aday for 2 days Flovent HFA 1 puff twice a Stephanie Corado, 11/19/2013 - day MD 12/15/2014 110mcg/Act Aerosol Albuterol Sulfate use with Stephanie Corado, 11/19/2013 - nebulizer as 12/15/2014 1.25mg/3ML Nebulizer directed every 4 hours Lansoprazole Take 1 Capsule 30caps Stephanie Murillo, 11/21/2012 - 30mg By Mouth Every MD 07/16/[address] Day Prednisone Kathie Jean-Baptiste - 20mg A., FURNITURE FINISHER APPRENTICE 06/28/2017 Tablets Montelukast Sodium Jerilyn Kathie - A., FURNITURE FINISHER APPRENTICE 07/05/2017 10mg Tablets Amoxicillin Jerilyn Kathie - 875mg A., FURNITURE FINISHER APPRENTICE 06/28/2017 Tablets Levocetirizine 1 by mouth 90tabs Stephanie Murillo, - Dihydrochloride every day M.D. 05/02/2016 5mg Tablets Prevacid 1 tab by mouth Unknown - 30mg daily 11/13/[address] Hydrocodone 15 ML PO Q4 180ml [place], - Bitartrate/Acetamino hours as needed Alaina [facility] 11/13/2015 phen for moderate to 7.5-325mg/15ML sever pain Solution Reference #: [id number] Calcet Petites 2 bid [place], [facility] 11/13/2015 [id number] Tablets Flintstones Complete 2 by mouth 100units [place], - every day [facility] 11/13/2015 60mg Chewtabs Vitamin B12 by mouth every 30tabs [place], - [facility]mcg [facility] 11/13/2015 Tablets Amoxicillin 1 by mouth 493.12 Unknown - 875mg twice a day 12/15/2014 Tablets Levocetirizine 1 by mouth Unknown - Dihydrochloride every day 07/16/2015 5mg Tablets Fluticasone 1 puff twice a Unknown - Propionate day 07/16/2015 50mcg/Act Suspension Astelin 2 puff twice a Unknown - 137mcg/[place] day 06/30/2015 Solution 8 Hour Pain Relief 1 po qd prn Unknown - 11/04/2014 650mg Tablets ER [facility] Allergy Relief 1 po qd 30caps Stephanie Murillo, - MD 12/15/2014 10mg Capsules Immunizations CPT Code Status Date Vaccine Lot # [id number] Given 05/02/2016 Influenza Virus Vaccine Split Virus Use For [id number] Individual 3Yr Older [id number] Given 04/14/2014 flu vaccination Vital Signs Date Vital Result Comment 01/21/2019 3:01pm BP Systolic 120 mmHg BP Diastolic 70 mmHg Body Temperature 98.1 F Heart Rate 93 /min Weight 225.38 lb O2 % BldC Oximetry 98 % 07/31/2018 9:20am BP Systolic Sitting Left Arm 112 mmHg BP Diastolic Sitting Left Arm 68 mmHg Body Temperature 97.9 F Heart Rate 78 /min Respiratory Rate 18 /min Height 67 inches 5'7" Weight 207.00 lb BMI (Body Mass Index) 32.4 kg/m2 BSA (Body Surface Area) 2.05 m2 [place] body weight in kilograms 61 kg 07/27/2018 10:30am BP Systolic Sitting Right Arm 118 mmHg BP Diastolic Sitting Right Arm 72 mmHg Body Temperature 98.1 F Heart Rate 96 /min Weight 218.56 lb O2 % BldC Oximetry 96 % 11/06/2017 2:18pm BP Systolic Sitting Left Arm 118 mmHg BP Diastolic Sitting Left Arm 70 mmHg Body Temperature 97.6 F Height 67 inches 5'7" Weight 229.50 lb BMI (Body Mass Index) 35.9 kg/m2 BSA (Body Surface Area) 2.14 m2 [place] body weight in kilograms 61 kg 07/05/2017 10:47am BP Systolic Sitting Left Arm 126 mmHg BP Diastolic Sitting Left Arm 70 mmHg Body Temperature 97.1 F Heart Rate 86 /min Respiratory Rate 12 /min Height 67 inches 5'7" Weight 214.25 lb BMI (Body Mass Index) 33.6 kg/m2 BSA (Body Surface Area) 2.08 m2 [place] body weight in kilograms 61 kg O2 % BldC Oximetry 94 % 06/28/2017 2:20pm BP Systolic Sitting Resting Right Arm 102 mmHg BP Diastolic Sitting Resting Right Arm 58 mmHg Body Temperature 100.7 F Heart Rate 88 /min Height 67 inches 5'7" Weight 214.00 lb BMI (Body Mass Index) 33.5 kg/m2 BSA (Body Surface Area) 2.08 m2 [place] body weight in kilograms 61 kg O2 % BldC Oximetry 98 % 02/24/2017 11:47am BP Systolic 142 mmHg BP Diastolic 82 mmHg Body Temperature 97.4 F Heart Rate 109 /min Height 67 inches 5'7" Weight 200.00 lb BMI (Body Mass Index) 31.3 kg/m2 BSA (Body Surface Area) 2.02 m2 [place] body weight in kilograms 61 kg O2 % BldC Oximetry 96 % 10/04/2016 3:14pm BP Systolic Sitting Left Arm 118 mmHg BP Diastolic Sitting Left Arm 68 mmHg Height 67 inches 5'7" Weight 195.44 lb BMI (Body Mass Index) 30.6 kg/m2 BSA (Body Surface Area) 2.00 m2 [place] body weight in kilograms 61 kg 09/05/2016 1:34pm BP Systolic 108 mmHg BP Diastolic 72 mmHg Body Temperature 98.6 F Heart Rate 72 /min Respiratory Rate 16 /min Height 67 inches 5'7" Weight 200.00 lb BMI (Body Mass Index) 31.3 kg/m2 BSA (Body Surface Area) 2.02 m2 Last Menstrual Period [id number] O2 % BldC Oximetry 99 % 05/11/2016 2:44pm BP Systolic Sitting Left Arm 118 mmHg BP Diastolic Sitting Left Arm 72 mmHg Height 67 inches 5'7" Weight 207.00 lb BMI (Body Mass Index) 32.4 kg/m2 BSA (Body Surface Area) 2.05 m2 [place] body weight in kilograms 61 kg Last Menstrual Period [id number] 05/02/2016 3:45pm BP Systolic Sitting Left Arm 116 mmHg BP Diastolic Sitting Left Arm 72 mmHg Body Temperature 99.1 F Heart Rate 78 /min Respiratory Rate 18 /min Height 67 inches 5'7" Weight 206.00 lb BMI (Body Mass Index) 32.3 kg/m2 BSA (Body Surface Area) 2.05 m2 [place] body weight in kilograms 61 kg Last Menstrual Period [id number] 11/13/2015 11:27am BP Systolic Sitting Left Arm 118 mmHg BP Diastolic Sitting Left Arm 66 mmHg Heart Rate 82 /min Respiratory Rate 18 /min Height 67 inches 5'7" Weight 237.00 lb BMI (Body Mass Index) 37.1 kg/m2 BSA (Body Surface Area) 2.17 m2 Last Menstrual Period [id number] 07/16/2015 11:54am BP Systolic 124 mmHg BP Diastolic 74 mmHg Body Temperature 97.9 F Height 67 inches 5'7" Weight 286.38 lb BMI (Body Mass Index) 44.8 kg/m2 BSA (Body Surface Area) 2.36 m2 06/30/2015 11:54am BP Systolic 124 mmHg BP Diastolic 72 mmHg Body Temperature 97.4 F Height 67 inches 5'7" Weight 311.50 lb BMI (Body Mass Index) 48.8 kg/m2 BSA (Body Surface Area) 2.44 m2 Last Menstrual Period [id number] 12/15/2014 1:15pm BP Systolic Sitting Left Arm 112 mmHg BP Diastolic Sitting Left Arm 72 mmHg Body Temperature 97.8 F Height 67 inches 5'7" Weight 303.00 lb BMI (Body Mass Index) 47.5 kg/m2 BSA (Body Surface Area) 2.41 m2 11/04/2014 2:55pm BP Systolic Sitting Left Arm 118 mmHg BP Diastolic Sitting Left Arm 64 mmHg Body Temperature 99.2 F Heart Rate 91 /min Respiratory Rate 21 /min Height 67 inches 5'7" Weight 302.00 lb BMI (Body Mass Index) 47.3 kg/m2 BSA (Body Surface Area) 2.41 m2 10/06/2014 4:15pm BP Systolic 122 mmHg LG Cuff BP Diastolic 66 mmHg LG Cuff Heart Rate 100 /min Respiratory Rate 19 /min Height 67 inches 5'7" Weight 299.00 lb 04/08/2014 2:18pm BP Systolic 118 mmHg LG Cuff BP Diastolic 78 mmHg LG Cuff Body Temperature 98.3 F Height 67 inches 5'7" Weight 303.00 lb 02/12/2014 3:38pm BP Systolic 108 mmHg BP Diastolic 74 mmHg Body Temperature 97.9 F Height 67 inches 5'7" Weight 305.00 lb 01/14/2014 11:57am BP Systolic 126 mmHg BP Diastolic 76 mmHg Body Temperature 97.4 F Height 67 inches 5'7" Weight 308.00 lb O2 % BldC Oximetry 98 % 11/19/2013 1:49pm BP Systolic 118 mmHg BP Diastolic 72 mmHg Body Temperature 98.9 F Height 67 inches 5'7" Weight 310.00 lb O2 % BldC Oximetry 98 % 05/03/2013 1:07pm BP Systolic 118 mmHg BP Diastolic 72 mmHg Body Temperature 98.7 F Height 67 inches 5'7" Weight 286.00 lb 04/09/2013 11:53am Height 67 inches 5'7" Weight 274.00 lb 03/26/2013 1:13pm BP Systolic 118 mmHg BP Diastolic 72 mmHg Body Temperature 98.3 F Height 67 inches 5'7" Weight 270.00 lb 11/21/2012 1:12pm BP Systolic 116 mmHg BP Diastolic 76 mmHg Heart Rate 96 /min Height 67 inches 5'7" Weight 219.00 lb 06/12/2012 3:46pm BP Systolic 124 mmHg BP Diastolic 72 mmHg Heart Rate 76 /min Respiratory Rate 18 /min Height 67 inches 5'7" Weight 232.00 lb 06/14/2011 1:44pm BP Systolic 138 mmHg BP Diastolic 88 mmHg Body Temperature 98.7 F Height 67 inches 5'7" Weight 225.00 lb 05/20/2011 2:29pm BP Systolic 122 mmHg BP Diastolic 72 mmHg Heart Rate 80 /min Height 67 inches 5'7" Weight 235.00 lb 05/04/2011 1:31pm BP Systolic 110 mmHg BP Diastolic 78 mmHg Heart Rate 84 /min Height 67 inches 5'7" Weight 236.00 lb 04/04/2011 2:01pm BP Systolic 144 mmHg BP Diastolic 90 mmHg Heart Rate 76 /min Respiratory Rate 18 /min Height 67 inches 5'7" Weight 238.00 lb Results Test Date Facility Test Result H/L Range Note Laboratory test [facility] Rapid Strep Negative Negative 1 finding 019 [phone] Molecular Glycohemoglobin [facility] Glycohemoglobin 5.0 % Normal 4.2-6.3 2, 3 A1c 018 [address] [facility] (A1c) [place], [place] [id number] [phone] eAG 97 mg/dL Iron-Tibc-%Sat 09/21/2017 [facility] Serum Iron 52 g/dL Normal 50-170 [address] [place], [place] [id number] [phone] Total Iron Binding Capacity 385 g/dL Normal 250-450 Transferrin %Saturation 14 % Normal 12-57 Laboratory test 09/21/2017 [facility] Vitamin B12 944 pg/mL Normal 193-986 finding [address] [place], [place] [id number] [phone] Ferritin 7 ng/mL Low 8-252 Comprehensive 09/21/2017 [facility] Glucose 96 mg/dL Normal 74-106 Metabolic Panel [address] [place], [place] [id number] [phone] BUN 14 mg/dL Normal 7-18 Creatinine 0.8 mg/dL Normal 0.6-1.3 Glom Filtration Rate, Estimate >60 mL/min >60 If >60 mL/min >60 4 BUN/Creat 17.5 ratio Sodium 139 mmol/L Normal 136-145 Potassium 3.8 mmol/L Normal 3.5-5.1 Chloride 108 mmol/L High 98-107 Carbon Dioxide 28 mmol/L Normal 21-32 Anion Gap 3 mEq/L Low 8-16 Calcium 9.0 mg/dL Normal 8.5-10.1 Total Protein 6.8 g/dL Normal 6.4-8.2 Albumin 3.6 g/dL Normal 3.4-5.0 Globulin 3.2 g/dL Normal 1.9-4.3 Alb/Glob 1.1 ratio Bilirubin,Total 0.2 mg/dL Normal 0.2-1.0 Sgot/Ast 21 U/L Normal 15-37 SGPT/Alt 24 U/L Normal 12-78 Alkaline Phosphatase 77 U/L Normal 45-117 LDL Cholesterol Profile 09/21/2017 [facility] Cholesterol 139 mg/dL <[address] [place] [address] [phone] Triglycerides 122 mg/dL <150 6 HDL Cholesterol 55 mg/dL >40 7 LDL-Cholesterol 60 mg/dL < 100 8 Laboratory test 09/21/2017 [facility] Thyroid 1.11 Normal 0.30-4.[address] Stim uIU/[place] [address] Hormone [phone] Free T4 0.86 ng/dL Normal 0.76-1.46 Vitamin D,25-Hydroxy 26.6 ng/mL Low 30.0-100.0 9 Vitamin B1 (Thiamine),WB 175.7 nmol/L 66.5-200.0 10 Laboratory test 06/17/2016 [facility] Thyroid 0.79 Normal 0.30-4.20 [address] Stim uIU/[place] [address] Hormone [phone] Free T4 0.91 ng/dL Normal 0.76-1.46 12 Vitamin D,25-Hydroxy 26.9 ng/mL Low 30.0-100.0 13 Vitamin B1 (Thiamine),WB 134.5 nmol/L Normal 66.5-200.0 14 LDL Cholesterol 06/17/2016 [facility] Cholesterol 134 mg/dL Normal <200 15 Profile [address] [place] [address] [phone] Triglycerides 129 mg/dL Normal <150 16 HDL Cholesterol 56 mg/dL Normal >40 17 LDL-Cholesterol 52 mg/dL Normal < 100 18 Comprehensive Metabolic 06/17/2016 [facility] Glucose 127 mg/dL High 74-106 Panel [address] [place] [address] [phone] BUN 7 mg/dL Normal 7-18 Creatinine 0.9 mg/dL Normal 0.6-1.3 Glom Filtration Rate, Estimate >60 mL/min Normal >60 If >60 mL/min Normal >60 19 BUN/Creat 7.7 ratio Normal Sodium 143 mmol/L Normal 136-145 Potassium 3.4 mmol/L Low 3.5-5.1 Chloride 109 mmol/L High 98-107 Carbon Dioxide 27 mmol/L Normal 21-32 Anion Gap 7 mEq/L Low 8-16 Calcium 8.6 mg/dL Normal 8.5-10.1 Total Protein 7.2 g/dL Normal 6.4-8.2 Albumin 3.8 g/dL Normal 3.4-5.0 Globulin 3.4 g/dL Normal 1.9-4.3 Alb/Glob 1.1 ratio Normal Bilirubin,Total 0.2 mg/dL Normal 0.2-1.0 Sgot/Ast 16 U/L Normal 15-37 SGPT/Alt 22 U/L Normal 12-78 Alkaline Phosphatase 76 U/L Normal 45-117 Laboratory test 06/17/2016 [facility] Total Iron 401 g/dL Normal 250-450 [address] [place] [address] Capacity [phone] Vitamin B12 795 pg/mL Normal 193-986 21 Ferritin 10 ng/mL Normal 8-252 22 Glycohemoglobin 06/17/2016 [facility] Glycohemoglobin 5.4 % Normal 4.2-6.3 23 A1c [address] [facility] (A1c) [place] [address] [phone] eAG 108 mg/dL Normal CBC 06/17/2016 [facility] White Blood Count 5.8 K/uL Normal 3.1-10.[address] [place] [address] [phone] Red Blood Count 4.81 M/uL Normal 3.90-5.40 Hemoglobin 14.0 gm/dL Normal 11.6-15.8 Hematocrit 42.2 % Normal 36.0-46.1 Mean Cell Volume 87.7 fl Normal 80.9-99.0 Mean Corpuscular HGB 29.1 pg Normal 25.9-32.7 Mean Corpuscular HGB Conc 33.2 g/dL Normal 30.8-34.3 Platelet Count 208 K/uL Normal 155-360 Red Cell Distri Width %CV 13.9 % Normal 11.7-14.4 Mean Platelet Volume 12.0 fL Normal 8.9-12.4 Laboratory test 12/14/2015 N2N/CCD Import Alanine Aminotransferase 25 12 -78 finding (Alt/SGPT) Albumin 3.4 3.4-5.0 Albumin/Globulin Ratio 1.0 Alkaline Phosphatase 84 45-117 Anion Gap 5 Low 8-16 Aspartate Amino Transf (Ast/Sgot) 17 15-37 BUN/Creatinine Ratio 16.2 Basophils # (Auto) 0.02 0.0-0.1 Basophils (%) (Auto) 0.3 0.0-1.1 Blood Urea Nitrogen 13 7-18 Calcium Level 8.7 8.5-10.1 Carbon Dioxide Level 30 21-32 Chloride Level 106 98-107 Cholesterol Level 129 <200 Creatinine 0.8 0.6-1.3 Eosinophils # (Auto) 0.10 0.0-0.5 Eosinophils (%) (Auto) 1.4 0.0-6.6 Estimated Average Glucose (eAG) 114 Ferritin 13 8-252 Folate 12.3 3.1-17.5 Globulin 3.3 1.9-4.3 Glucose Screen 102 74-106 HDL Cholesterol 35 Low >40 Hematocrit 38.7 36.0-46.1 Hemoglobin 12.4 11.6-15.8 Hemoglobin A1c 5.6 4.2-6.3 Iron Level 60 50-170 LDL Cholesterol, Calculated 61 < 100 Lymphocytes # (Auto) 1.60 Low 1.8-7.0 Lymphocytes (%) (Auto) 21.6 17.0-46.1 Mean Corpuscular Hemoglobin 27.7 25.9-32.7 Mean Corpuscular Hemoglobin Concent 32.0 30.8-34.3 Mean Corpuscular Volume 86.6 80.9-99.0 Mean Platelet Volume 12.6 High 8.9-12.4 Monocytes # (Auto) 0.41 0.3-0.9 Monocytes (%) (Auto) 5.5 4.3-13.2 Neutrophils # (Auto) 5.27 1.8-7.0 Neutrophils (%) (Auto) 71.2 40.4-72.8 Platelet Count 201 155-360 Potassium Level 3.6 3.5-5.1 Prealbumin 15.8 Low 20.0-40.0 RDW Coefficient of Variation 15.9 High 11.7-14.4 Red Blood Count 4.47 3.90-5.40 Red Cell Distribution Width 49.1 High 3-47 Sodium Level 141 136-145 Total Bilirubin 0.3 0.2-1.0 Total Iron Binding Capacity 335 250-450 Total Protein 6.7 6.4-8.2 Transferrin % Saturation 18 12-57 Triglycerides Level 167 High <150 Vitamin B12 Level 614 193-986 White Blood Count 7.4 3.1-10.7 Whole Blood Vitamin B1 Level 124.7 66.5-200.0 Laboratory test 12/14/2015 N2N/CCD Import Vitamin D 32.5 30.0-100.0 finding 25-Hydroxy Urinalysis 11/26/2015 [facility] Urine Color Yellow Normal 24 Profile [phone] Urine Appearance Clear Normal Urine Specific [place] 1.023 Normal 1.010-1.030 Urine pH 6.0 Normal 5-9 Urine Urobilinogen Negative Normal Negative Urine Ketones Negative Normal Negative Urine Protein Negative Normal Negative Urine Leukocytes Negative Normal Negative Urine Blood 1+ Abnormal Negative Urine Nitrite Negative Normal Negative Urine Bilirubin Negative Normal Negative Urine Glucose Negative Normal Negative Urine White Blood Cell Absent Normal Absent Urine Red Blood Cell 3+(>10/hpf) Abnormal Absent Urine Bacteria 1+ Abnormal Absent Urine Squamous Epithelial Cell Present Abnormal Absent Urine Calcium Oxalate Cryst Present Abnormal Absent Laboratory test 11/26/2015 [facility] Urine Culture SEE RESULT 25 finding [phone] BELOW Laboratory test 07/14/2015 [facility] Wound/Misc SEE RESULT 26, 27 finding [phone] Culture-Gram BELOW Stain Laboratory test 02/12/2014 N2N/CCD Import Urine Culture See Note 28 finding Laboratory test 12/02/2012 N2N/CCD Import Bas% 0.5 % 0.0-1 finding .1 Baso # 0.04 K/uL 0.0-0.1 Eo% 1.6 % 0.0-6.6 Eos # 0.12 K/uL 0.0-0.5 HCG, Quant 40538.0 mIU/mL 29 Hematocrit 36.9 % 36.0-46.1 Hemoglobin 13.0 gm/dL 11.6-15.8 Lymph # 2.69 K/uL 0.8-3.4 Lymph % 35.9 % 17.0-46.1 Mean Cell Volume 84.6 fl 80.9-99.0 Mean Corpuscular HGB 29.8 pg 25.9-32.7 Mean Corpuscular HGB Conc 35.2 g/dL High 30.8-34.3 Mean Platelet Volume 11.5 fL 8.9-12.4 [place] # 0.66 K/uL 0.3-0.9 [place] % 8.8 % 4.3-13.2 Neut# 3.99 K/uL 1.0-7.0 Neut% 53.2 % 40.4-72.8 Platelet Count 170 K/uL 155-360 Red Blood Count 4.36 M/uL 3.90-5.40 Red Cell Distri Width %CV 12.3 % 11.7-14.4 Red Cell Distri Width SD 36.9 fl 3-47 Urine HCG (Qualitative) Positive High Negative White Blood Count 7.5 K/uL 3.1-10.7 Basic Metabolic Panel 12/02/2012 N2N/CCD Import Anion Gap 14 mEq/L 8-16 BUN 4 mg/dL Low 5-23 BUN/Creat 4.4 ratio Calcium 8.9 mg/dL 8.5-10.1 Carbon Dioxide 25 mEq/L 18-29 Chloride 104 mmol/L 98-107 Creatinine 0.9 mg/dL 0.5-1.4 Glom Filtration Rate, Estimate >60 mL/min >60 Glucose 86 mg/dL 76-115 If >60 mL/min >60 30 Potassium 3.3 mmol/L Low 3.5-5.1 Sodium 140 mmol/L 136-145 Urine Screen 12/02/2012 N2N/CCD Import Urine Bilirubin - Negative Negative Dipstick Urine Blood Trace Negative Urine Clarity Clear Clear Urine Color Yellow Yellow Urine Glucose - Dipstick Negative mg/dL Negative Urine Ketone Negative mg/dL Negative Urine Leuk Esterase Negative Negative Urine Nitrite - Dipstick Negative Negative Urine PH 6.0 Low 6.5-7.5 Urine Protein - Dipstick Negative mg/dL Negative Urine Specific [place] 1.010 1.010-1.030 Urine Urobilinogen - Dipstick 0.2 E.U./dL 0.2-1.0 Laboratory test finding 06/12/2012 N2N/CCD Import T4 7.6 ug/mL 5.0-12.0 TSH (Thyroid Stimulating Horm) 0.92 MIU/ML 0.34-5.60 Laboratory test 04/04/2011 N2N/CCD Import TSH 0.76 MIU/ML 0.34-5.60 finding Laboratory test 04/04/2011 N2N/CCD Import Cytology Pap See Note 31 finding 1 Occupational Work Experience Teacher: [id number] K91.2 3 Elevated levels of HbA1c suggest the need for more aggressive treatment of glycemia. The [place] [employer] recommends that a primary goal of therapy should be a HbA1c of <7% and that physicians should re-evaluate the treatment regimen in patients with HbA1c values consistently >8%. 4 Note: Persistent reduction for 3 months or more in an eGFR <60 mL/min/1.73 m2 defines CKD. Patients with eGFR values >/=60 mL/min/1.73 m2 may also have CKD if evidence of persistent proteinuria is present. The original MDRD equation for estimated GFR is not valid for patients less than 18 years of age. Additional information may be found at www.kdoqi.org. 5 Reference Guidelines*: Desirable: ........... < 200 mg/dL Borderline High: ..... 200-239 mg/dL High: ................ >=240 mg/dL * The National Cholesterol Education Program (NCEP) 6 Reference Guidelines*: Normal: ............. < 150 mg/dL Borderline High: .... 150-199 mg/dL High: ............... 200-499 mg/dL Very High: .......... > 500 mg/dL * Source: National Cholesterol Education Program (NCEP) 7 Reference Guidelines*: Low HDL: ..... < 40 mg/dL Normal: ..... 40-60 mg/dL Desirable: ... > 60 mg/dL *The National Cholesterol Education Program(NCEP) 8 Reference Guidelines*: Optimal:........... <100 mg/dL Near Optimal....... 100-129 mg/dL Borderline High.... 130-159 mg/dL High............... 160-189 mg/dL Very High.......... >=190 mg/dL * Source: National Cholesterol Education Program (NCEP) 9 Vitamin D deficiency has been defined by the [place] [employer] and an Endocrine Society practice guideline as a level of serum 25-OH vitamin D less than 20 ng/mL (1,2). The Endocrine Society went on to further define vitamin D insufficiency as a level between 21 and 29 ng/mL (2). 1. IOM ([place] [employer]). 2010. Dietary reference intakes for calcium and D. [place]: The National Academies Press. 2. Marifer Soto, Bharati NGUYEN, et al. Evaluation, treatment, and prevention of vitamin D deficiency: an Endocrine Society clinical practice guideline. JCEM. 2010; 96(7):1911-30. Performed at: - [facility] [id number] [employer] Farmer: Mabel Pierre MD, Phone: [phone] 10 This test was developed and its performance characteristics determined by [employer]. It has not been cleared or approved by the Food and Drug Administration. Performed at: [facility] [employer] [id number] [employer] Farmer: Andrés Heath MD, Phone: [phone] SHERRY CROOKS [phone] SHERRY CROOKS [phone] 13 Vitamin D deficiency has been defined by the [place] [employer] and an Endocrine Society practice guideline as a level of serum 25-OH vitamin D less than 20 ng/mL (1,2). The Endocrine Society went on to further define vitamin D insufficiency as a level between 21 and 29 ng/mL (2). 1. IOM ([place] [employer]). 2010. Dietary reference intakes for calcium and D. [place]: The National Academies Press. 2. Marifer Soto, Bharati NGUYEN, et al. Evaluation, treatment, and prevention of vitamin D deficiency: an Endocrine Society clinical practice guideline. JCEM. 2010; 96(7):1911-30. Performed at: - [facility] [id number] [employer] Farmer: Mabel Pierre MD, Phone: [phone] 14 Performed at: - [facility] [id number] [employer] Farmer: Andrés Heath MD, Phone: [phone] 15 Reference Guidelines*: Desirable: ........... < 200 mg/dL Borderline High: ..... 200-239 mg/dL High: ................ >=240 mg/dL * The National Cholesterol Education Program (NCEP) 16 Reference Guidelines*: Normal: ............. < 150 mg/dL Borderline High: .... 150-199 mg/dL High: ............... 200-499 mg/dL Very High: .......... > 500 mg/dL * Source: National Cholesterol Education Program (NCEP) 17 Reference Guidelines*: Low HDL: ..... < 40 mg/dL Normal: ..... 40-60 mg/dL Desirable: ... > 60 mg/dL *The National Cholesterol Education Program(NCEP) 18 Reference Guidelines*: Optimal:........... <100 mg/dL Near Optimal....... 100-129 mg/dL Borderline High.... 130-159 mg/dL High............... 160-189 mg/dL Very High.......... >=190 mg/dL * Source: National Cholesterol Education Program (NCEP) 19 Note: Persistent reduction for 3 months or more in an eGFR <60 mL/min/1.73 m2 defines CKD. Patients with eGFR values >/=60 mL/min/1.73 m2 may also have CKD if evidence of persistent proteinuria is present. The original MDRD equation for estimated GFR is not valid for patients less than 18 years of age. Additional information may be found at www.kdoqi.org. [address] SHERRY CROOKS [phone] SHERRY CROOKS [phone] SHERRY CROOKS [phone] 23 Elevated levels of HbA1c suggest the need for more aggressive treatment of glycemia. The [place] Diabetes Association recommends that a primary goal of therapy should be a HbA1c of <7% and that physicians should re-evaluate the treatment regimen in patients with HbA1c values consistently >8%. 24 [id number] 25 SEE RESULT BELOW Name: APARNA GARCIA : [address]: Cedric Barrera MD Acct: [id number] Unit: [id number] AGE: 35 Location: [facility] Re11/26/15 SEX: F Status: DEP ER SPEC: [id number] TAMARA: 11/26/15-1245 [facility] DR: Cynthia Narvaez [employer]IT[employer] FINISHER APPRENTICE REQ: [id number] RECD: 11/26/15432 STATUS: MANDIE CAMARA DR: Stephanie Barrera MD _ SOURCE: URINE SPDESC: ORDERED: Urine Culture COMMENTS: [id number] Procedure Result Reported Site Urine Culture Final 11/27/15- 1633 ML No Growth (<1,000 CFU/mL) * ML - MAIN LAB ([facility]) . END OF REPORT * ML=Testing performed at Main Lab DEPARTMENT OF PATHOLOGY, [address] [place] [address] James Tong M.D. Director [facility] # [id number] 26 Comment: left 27 SEE RESULT BELOW Name: APARNA GARCIA : [address]: Julisa Joya MD Acct: [id number] Unit: [id number] AGE: 35 Location: [facility] Re07/14/15 SEX: F Status: DEP ER SPEC: [id number] TAMARA: 07/14/15-1309 [facility] [address]: Julisa Joya MD REQ: [id number] RECD: 07/14/15 STATUS: MANDIE CAMARA DR: Stephanie Murillo MD _ SOURCE: ABDOMEN SPDESC: ORDERED: Culture Stain COMMENTS: Comment: left Procedure Result Reported Site Wound/Misc Gram Stain Final 07/14/15- 2007 ML 2+ Epithelial Cells 2+ Neutrophils 1+ Gram Negative Bacilli Wound/Misc Culture Final 07/16/15- 1357 ML Organism 1 PSEUDOMONAS AERUGINOSA Quantity 3+ Organism 2 NORMAL MAYA Quantity 1+ 1. PSEUDOMONAS AERUGINOSA M.I.C. RX --------- ------ Ampicillin >=32 R Cefazolin >=64 R Cefepime <=1 S Ceftriaxone R Ciprofloxacin <=0.25 S Gentamicin <=1 S Levofloxacin 1 S Meropenem 0.5 S Nitrofurantoin >=512 R Tetracycline >=16 R Pipercillin/Tazobactam 8 S Trimethoprim/Sulfamethoxazole 80 R Amoxicillin/Clavulanic Acid >=32 R CONTINUED ON NEXT PAGE * ML=Testing performed at Main Lab DEPARTMENT OF PATHOLOGY, [address] [place] [id number] James Tong M.D. Director [facility] # [id number] Patient: APARNA GARCIA [id number] (Continued) Specimen: [id number] Collected: 07/14/15 Received: 07/14/15 (Continued) Procedure Result Reported Site Wound/Misc Culture Final (continued) Contact the Microbiology Department for any additional antibiotic reporting. * ML - MAIN LAB ([facility]) . END OF REPORT * ML=Testing performed at Main Lab DEPARTMENT OF PATHOLOGY, [address] [place] [address] James Tong M.D. Director [facility] # [id number] 28 COLONY COUNT ! >100,000 CFU/ml Organism 1 ! STAPHYLOCOCCUS SAPROPHYTICUS QUANTITY ! MANY RECOMMENDED THERAPY: ! ORAL CEPHALOSPORINS OR AMOXICILLIN/CLAV STAPHYLOCOCCUS SAPROPHYTICUS Target Route Dose M.I.C. RX AB COST ------ ----- -------- ------ -- ------ PENICILLIN G 0.25 R OXACILLIN 2 S TETRACYCLINE <=1 S NITROFURANTOIN <=16 S TRIMETHOPRIM/SULFAMETHOXAZOLE BLOOD PO DS <=10 S 0.39 AMOXICILLIN R AMOXICILLIN/CLAVULANATE S AMPICILLIN/SULBACTAM S CEFAZOLIN S GENTAMICIN <=0.5 S CIPROFLOXACIN <=0.5 S MOXIFLOXACIN <=0.25 S LEVOFLOXACIN 0.5 S CEFACLOR S CEFUROXIME S PIPERACILLIN R CEFTRIAXONE S VANCOMYCIN <=0.5 S 29 Approximate Gestational Age and Total BHCG Range: 0.2 - 1 Week........................5-50 mIU/mL 1 - 2 Weeks.....................50- 500 mIU/mL 2 - 3 Weeks..................100-5,000 mIU/mL 3 - 4 Weeks.................500-10,000 mIU/mL 4 - 5 Weeks...............1,000-50, 000 mIU/mL 5 - 6 Weeks.............10,000-100,000 mIU/mL 6 - 8 Weeks.............15,000-200,000 mIU/mL 2 - 3 Months............10,000-100, 000 mIU/mL 30 Note: Persistent reduction for 3 months or more in an eGFR <60 mL/min/1.73 m2 defines CKD. Patients with eGFR values >/=60 mL/min/1.73 m2 may also have CKD if evidence of persistent proteinuria is present. The original MDRD equation for estimated GFR is not valid for patients less than 18 years of age. Additional information may be found at www.kdoqi.org. [address] [facility] [address] [place] [address], [address] [place] [address] CYTOLOGY REPORT Name: Aparna Garcia : 1980 (Age: 30) Sex: F Location: [facility] Soc. Sec. #: [id number] Date Collected: 04/04/2011 Billing #: [id number] Date Received: 04/05/2011 Physician(s): STEPHANIE MURILLO MD Source of Specimen: ENDOCERVICAL/ECTOCERVICAL THIN PREP Clinical Information: Date of Last Menstrual Period: 03/27/11 Menstrual History: Regular Specimen Adequacy: SATISFACTORY FOR EVALUATION. ADEQUATE ENDOCERVICAL/TRANSFORMATION ZONE. General Categorization : NEGATIVE FOR INTRAEPITHELIAL LESION OR MALIGNANCY. Electronic Signature El Fischer MD Reported: 04/08/2011 Also seen by: CAROLINA Rosario (ASCP) Cytology Outreach [facility] ICD-9 Code(s) V72.31 Procedures Date Code Description Status 06/28/2017 20467 Pulse Oximetry Completed 06/28/2017 57472 Pressurized/Non-Pressurized Inhalation Treatment,Acute Completed Obstructio 11/04/2014 13606 Pulse Oximetry Completed 01/07/2014 61534 Mammography Unilateral Completed 01/07/2014 [id number] Mammogram Completed Encounters Type Date Location Provider Dx Diagnosis Office Visit 07/31/2018 Family Medicine Karri, M54.31 Sciatica, right 9:15a [address] [place], side SALES AND MARKETING REPRESENTATIVE Z98.84 Bariatric surgery status Office Visit 07/27/2018 Family Karri M54.31 Sciatica, right 10:30a Medicine [place], SALES AND MARKETING REPRESENTATIVE side RD Z98.84 Bariatric surgery status Office Visit 11/06/2017 2:15p [facility] Medicine Clary Scherer, B37.[address] PNP-BC, SALES AND MARKETING REPRESENTATIVE, skin and nail Ibclc G56.03 Carpal tunnel syndrome, bilateral upper limbs Office Visit 07/05/2017 10:30a [facility] Carol Figueroa, J45.21 Mild intermittent Cristobal ALY M.D. asthma with (acute) exacerbation Office Visit 06/28/2017 2:00p [facility] Medicine Karri J01.90 Acute sinusitis, [address] RD Alaina, unspecified SALES AND MARKETING REPRESENTATIVE J20.9 Acute bronchitis, unspecified J45.21 Mild intermittent asthma with (acute) exacerbation E66.9 Obesity, unspecified Z68.33 Body mass index (BMI) 33.0-33.9, adult Office Visit 02/24/2017 11:45a [facility] Medicine Carol Figueroa, J45.21 Mild intermittent Cristobal ALY M.D. asthma with (acute) exacerbation Office Visit 10/04/2016 3:00p [facility] Medicine Carol Figueroa G25.81 Restless legs Cristobal ALY M.D. syndrome F41.1 Generalized anxiety disorder Office Visit 09/05/2016 1:30p Family Medicine Luís Reagan5.81 Restless legs [address] SHEEBA [place], syndrome SALES AND MARKETING REPRESENTATIVE-C Office Visit 05/11/2016 2:30p Family Medicine Karri M54.31 Sciatica, right [address] [place], side SALES AND MARKETING REPRESENTATIVE R20.2 Paresthesia of skin Office Visit 05/02/2016 Family Zeng M54.31 Sciatica, right 3:15p Medicine Cristobal Foley, SALES AND MARKETING REPRESENTATIVE side RD M54.5 Low back pain Z23 Encounter for immunization Office Visit 11/13/2015 Family Murillo F41.1 Generalized 11:15a Medicine Cristobal Brown M.D. anxiety disorder RD Office Visit 07/16/2015 Family Karri, T81.89xS Oth complications 11:45a Mark Foley, of procedures, RD SALES AND MARKETING REPRESENTATIVE NEC, sequela Office Visit 06/30/2015 Family Carol Figueroa, H92.01 Otalgia, right ear 11:45a Mark Jain M.D. RD Office Visit 12/15/2014 Family Aimee Guajardo, 493.12 Intrinsic Asthma 1:30p Mark Jain MD With Acute RD Exacerbation Office Visit 11/04/2014 Family Murillo, 493.92 Asthma Unspec W/ 2:50p Mark Brown M.D. Acute Exacerbation RD Plan of Treatment 01/21/2019 - Paula Metcalf, PAH10.233 Serous conjunctivitis, except viral, bilateralNew Medication:Ofloxacin (Ophthalmic) 0.3 % - 2 drops both eyes twice a day for 7 daysComments:Wipe away discharge with warm washcloth. Massage inner corner of eye. Drops may be given with patient lying down and eyes gently closed. Place drops in the inner corner of the eye and blink several times. Keeps hands and face clean. Avoid touching the face. Do not share linens with others.Follow up:As needed. If condition worsens. or fails to resolve.J02.9 Acute pharyngitis, unspecifiedComments:throat CULTURE collected today. We will send the culture to the lab and will treat if it does grow strep. Results should be available in 1-2 days. In the mean time, continue to treat this a a viral illness.
[2019-02-17 09:21] VITALS: BP 102/70
--- NOTE | 2019-02-17 09:27 | UC ---
Skin Complaint HPI - HPI Summary HPI Summary: Pt presents with c/o cat scratch to the right side of forehead, and left inner corner of eye this morning. The cat was startled and jumped off pt this morning. The cat is her pet and UTD on all vaccinations. - History of Current Complaint Chief Complaint: UCSkin Time Seen by Provider: 02/17/19 09:20 Stated Complaint: CAT SCRATCH (FACE) Hx Obtained From: Patient Hx Last Menstrual Period: 01/31/19 ?: No Onset/Duration: Sudden Onset, Still Present Skin Exposure Onset/Duration: Minutes Ago Timing: Constant Onset Severity: Mild Current Severity: Mild Pain Intensity: 5 Location: Face Character: Painful Aggravating Factor(s): Touch Alleviating Factor(s): Unknown Associated Signs & Symptoms: Positive: Tenderness Related History: Other: - animal/cat scratch - Allergy/Home Medications Allergies/Adverse Reactions: Allergies Allergy/AdvReac Type Severity Reaction Status Date / Time Adhesive Tape Allergy Blisters Verified 02/17/19 09:14 budesonide [From Symbicort] Allergy Swelling Verified 02/17/19 09:14 doxycycline Allergy Vomiting Verified 02/17/19 09:14 formoterol [From Symbicort] Allergy Swelling Verified 02/17/19 09:14 NSAIDS (Non-Steroidal Allergy See Comment Verified 02/17/19 09:14 Anti-Inflamma tramadol Allergy Difficulty Verified 02/17/19 09:14 Breathing PMH/Surg Hx/FS Hx/Imm Hx Previously Healthy: Yes - Surgical History Surgical History: Yes Surgery Procedure, Year, and Place: tonsils, cholecystectomy; lap band 2009 was removed 05/2015; gastric bypass by Dr. Wolff [facility]. hernia 01/2016. . thyroidectomy 07/2018 - Family History Known Family History: Positive: Hypertension, Diabetes - Mom is pre-diabetic - Social History Occupation: Employed Full-time Lives: With Family Alcohol Use: Rare Substance Use Type: None Smoking Status (MU): Former Smoker Have You Smoked in the Last Year: No When Did the Patient Quit Smoking/Using Tobacco: ~2007 - Immunization History Most Recent Tetanus Shot: 2013 Vaccination Up to Date: Yes Review of Systems All Other Systems Reviewed And Are Negative: Yes Constitutional: Positive: Negative Skin: Positive: Other - laceration from cat scratch Eyes: Positive: Negative ENT: Positive: Negative Respiratory: Positive: Negative Cardiovascular: Positive: Negative Gastrointestinal: Positive: Negative Motor: Positive: Negative Neurovascular: Positive: Negative Musculoskeletal: Positive: Negative Neurological: Positive: Negative Psychological: Positive: Negative Is Patient Immunocompromised?: No Physical Exam Triage Information Reviewed: Yes Appearance: Well-Appearing Vital Signs: Initial Vital Signs Temp 98 F 02/17/19 09:16 Pulse 83 02/17/19 09:16 Resp 16 02/17/19 09:16 BP 102/70 02/17/19 09:16 Pulse Ox 100 02/17/19 09:16 Vital Signs Reviewed: Yes Eye Exam: Normal ENT: Positive: Hearing grossly normal Dental Exam: Normal Neck exam: Normal Respiratory: Positive: No respiratory distress Musculoskeletal Exam: Normal Neurological Exam: Normal Psychological Exam: Normal Skin Exam: Other - small lacerations ~ 4 to right side of forehead and small elliptical to left inner corner of eye. Course/Dx - Differential Diagnoses - Skin Complaint Differential Diagnoses: Cellulitis - Diagnoses Provider Diagnosis: Cat scratch of face Discharge - Sign-Out/Discharge Documenting (check all that apply): Patient Departure All imaging exams completed and their final reports reviewed: No Studies - Discharge Plan Condition: Stable Disposition: HOME Prescriptions: Amoxicillin/Clavulanate TAB* [Augmentin TAB 500 mg*] 500 mg PO Q12H #14 tab Patient Education Materials: Laceration (ED) Referrals: Aneta Zeng NP [Primary Care Provider] - If Needed Additional Instructions: Please follow up with your PCP as needed. Please monitor for any signs of infection including but not limited to: increased redness, tenderness, swelling and/or fever. - Billing Disposition and Condition Condition: STABLE Disposition: Home
== END 2019-02-17 09:38 | disposition home or self-care (01) ==
LOC: UCCORT 09:01
DX: S00.81XA Abrasion of other part of head, initial encounter (principal); W55.03XA Scratched by cat, initial encounter; Y93.89 Activity, other specified; Y92.9 Unspecified place or not applicable; Z87.891 Personal history of nicotine dependence
CPT/HCPCS: 99212; G0463

== ENCOUNTER 2019-07-17 11:40 | Emergency (ER) | payer BC ==
[2019-07-17 12:29] VITALS: BP 119/67
--- NOTE | 2019-07-17 12:40 | UC ---
Throat Pain/Nasal Jarrett HPI - HPI Summary HPI Summary: Pt presents with c/o nasal congestion, bilateral ear pain, sinus pressure and pain X 3 weeks. - History of Current Complaint Chief Complaint: UCGeneralIllness Stated Complaint: SINUS,COUGH,EARS Time Seen by Provider: 07/17/19 12:23 Hx Obtained From: Patient Hx Last Menstrual Period: 07/12/19 ?: No Onset/Duration: Gradual Onset, Lasting Weeks Severity: Moderate Pain Intensity: 0 Cough: None Associated Signs & Symptoms: Positive: Sinus Discomfort - Epiglottits Risk Factors Epiglottis Risk Factors: Negative - Allergies/Home Medications Allergies/Adverse Reactions: Allergies Allergy/AdvReac Type Severity Reaction Status Date / Time Adhesive Tape Allergy Blisters Verified 07/17/19 12:23 budesonide [From Symbicort] Allergy Swelling Verified 07/17/19 12:23 doxycycline Allergy Vomiting Verified 07/17/19 12:23 formoterol [From Symbicort] Allergy Swelling Verified 07/17/19 12:23 NSAIDS (Non-Steroidal Allergy See Comment Verified 07/17/19 12:23 Anti-Inflamma tramadol Allergy Difficulty Verified 07/17/19 12:23 Breathing Home Medications: Home Medications Pseudoephedrine HCl [Sudafed] 2 tab PO ONCE 07/17/19 [History Confirmed 07/17/19 ] PMH/Surg Hx/FS Hx/Imm Hx Previously Healthy: Yes - Surgical History Surgical History: Yes Surgery Procedure, Year, and Place: tonsillectomy. cholecystectomy. lap band 2009 was removed 05/2015. gastric bypass by Dr. Wolff [facility]. hernia 01/2016. . thyroidectomy 07/2018 - Family History Known Family History: Positive: Hypertension, Diabetes - Mom is pre-diabetic - Social History Occupation: Employed Full-time Lives: With Family Alcohol Use: Rare Substance Use Type: None Smoking Status (MU): Former Smoker Have You Smoked in the Last Year: No When Did the Patient Quit Smoking/Using Tobacco: ~2007 - Immunization History Most Recent Tetanus Shot: 2013 Vaccination Up to Date: Yes Review of Systems All Other Systems Reviewed And Are Negative: Yes Constitutional: Positive: Chills, Fatigue Skin: Positive: Negative Eyes: Positive: Negative ENT: Positive: Ear Ache, Sinus Congestion, Sinus Pain/Tenderness Respiratory: Positive: Negative Cardiovascular: Positive: Negative Gastrointestinal: Positive: Negative Genitourinary: Positive: Negative Motor: Positive: Negative Neurovascular: Positive: Negative Musculoskeletal: Positive: Negative Neurological: Positive: Headache Psychological: Positive: Negative Is Patient Immunocompromised?: No Physical Exam Triage Information Reviewed: Yes Appearance: Ill-Appearing Vital Signs: Initial Vital Signs Temp 97 F 07/17/19 12:24 Pulse 80 07/17/19 12:24 Resp 14 07/17/19 12:24 BP 119/67 07/17/19 12:24 Pulse Ox 97 07/17/19 12:24 Vital Signs Reviewed: Yes Eye Exam: Normal ENT: Positive: Nasal congestion, Sinus tenderness Dental Exam: Normal Neck exam: Normal Respiratory Exam: Normal Cardiovascular Exam: Normal Musculoskeletal Exam: Normal Neurological Exam: Normal Psychological Exam: Normal Skin Exam: Normal Throat Pain/Nasal Course/Dx - Differential Dx/Diagnosis Differential Diagnosis/HQI/PQRI: Influenza, Otitis Media, Sinusitis, URI Provider Diagnosis: Sinusitis Discharge ED - Sign-Out/Discharge Documenting (check all that apply): Patient Departure All imaging exams completed and their final reports reviewed: No Studies - Discharge Plan Condition: Stable Disposition: HOME Prescriptions: Amoxicillin PO (*) [Amoxicillin 875 MG (*)] 875 mg PO Q12H #20 tab Patient Education Materials: Sinusitis (ED) Referrals: Aneta Zeng NP [Primary Care Provider] - If Needed - Billing Disposition and Condition Condition: STABLE Disposition: Home
== END 2019-07-17 12:48 | disposition home or self-care (01) ==
LOC: UCCORT 11:40
DX: J32.9 Chronic sinusitis, unspecified (principal); Z91.09 Other allergy status, other than to drugs and biological substances; Z88.6 Allergy status to analgesic agent; Z88.5 Allergy status to narcotic agent; Z88.8 Allergy status to other drugs, medicaments and biological substances; Z87.891 Personal history of nicotine dependence
CPT/HCPCS: 99212; G0463